=== PATIENT | female | born 1975 | race Caucasian/White ===

== ENCOUNTER → 2017-03-01 | Outpatient (CLI) | payer MEDICAID | LOC: CIMAGING 16:48 | PROVIDERS: ATTEND Family Medicine | DX: R22.32 Localized swelling, mass and lump, left upper limb (principal); Z86.018 Personal history of other benign neoplasm | CPT/HCPCS: 76882-PO ==

== ENCOUNTER → 2017-04-16 | Outpatient (CLI) | payer MEDICAID | LOC: CIMAGING 08:22 | PROVIDERS: ATTEND Family Medicine | DX: Z12.31 Encounter for screening mammogram for malignant neoplasm of breast (principal) | CPT/HCPCS: G0202 ==

== ENCOUNTER 2017-11-26 14:00 | Day surgery (SDC) | payer MEDICAID ==
[2017-11-26] MEDS ORDERED: IOPAMIDOL (ISOVUE-M 300) 15 ML VIAL ONE (15:00)
[2017-11-26] MEDS ORDERED: TRIAMCINOLONE ACETONIDE 200 MG/5 ML MDV IM ONE (15:01)
== END 2017-11-26 16:00 | disposition home or self-care (01) ==
LOC: FIMAGING 14:00
PROVIDERS: ATTEND Neurological Surgery
PROC: 3E0R33Z Introduction of Anti-inflammatory into Spinal Canal, Percutaneous Approach (ICD-10-PCS; principal; 2017-11-26)
DX: M54.12 Radiculopathy, cervical region (principal)
CPT/HCPCS: J3301; Q9967

== ENCOUNTER → 2018-04-19 | Outpatient (CLI) | payer MEDICAID | LOC: CIMAGING 14:12 | PROVIDERS: ATTEND Family Medicine | DX: Z12.31 Encounter for screening mammogram for malignant neoplasm of breast (principal) ==